=== PATIENT | female | born 1955 | race Two or more races ===

== ENCOUNTER 2022-05-13 17:54 | Emergency (ER) | payer OTHER ==
[~2022-05-13] VITALS: Ht 152.4 cm; Wt 54.4 kg
== END 2022-05-13 21:00 | disposition home or self-care (01) ==
LOC: ER 17:54
DX: N39.0 Urinary tract infection, site not specified (principal); R30.0 Dysuria; R10.32 Left lower quadrant pain; Z88.6 Allergy status to analgesic agent; I10 Essential (primary) hypertension; E11.9 Type 2 diabetes mellitus without complications